=== PATIENT | female | born 2000 | race Caucasian/White ===

== ENCOUNTER 2019-06-24 15:32 | Inpatient (IN) | payer MEDICAID ==
[2019-06-24] MEDS ORDERED: Sodium Chloride 0.9% 10 ML Syringe FLUSH PRN (15:51)
[2019-06-24] MEDS ORDERED: Nalbuphine 10 MG/1 ML Vial IVPUSH PRN (15:51)
[2019-06-24] MEDS ORDERED: Oxytocin/Lactated Ringers 10 UNIT/1,000 ML BAG IV SCH ×2 (16:00)
[2019-06-24] MEDS ORDERED: Misoprostol 25 MCG (1/4 of 100 MCG) Tab VAG ONE (16:39)
[2019-06-24] MEDS ORDERED: Misoprostol 25 MCG (1/4 of 100 MCG) Tab ONE (16:42)
[2019-06-24] MEDS: Misoprostol 25 MCG (1/4 of 100 MCG) Tab VAG SCH ×2 (17:41→21:11)
[2019-06-24] MEDS ORDERED: Labetalol 100 MG/20 ML MDV IVPUSH ONE (17:57)
[2019-06-24] MEDS ORDERED: Magnesium Sulfate/Water 4 GM in Premix Bag 1 BAG IV ONE (17:58)
[2019-06-24] MEDS ORDERED: Calcium Gluconate 10% 1 GM/10 ML SDV IV PRN (17:58)
[2019-06-24] MEDS ORDERED: Magnesium Sulfate/Water 2 GM in Premix Bag 1 BAG IV ONE (17:58)
[2019-06-24] MEDS: Lactated Ringers 1,000 ML IV SCH (18:14)
[2019-06-24] MEDS: Magnesium Sulfate/Water 40 GM/1,000 ML BAG IV SCH (18:40)
--- NOTE | 2019-06-24 20:51 | PCM.SN ---
- Free Text/Narrative Note: 1800 Patient with several severe range BP's. Overall feeling well. Does have +3 reflexes bilaterally, but no clonus. Will given 20 mg IV labetalol and start magnesium. Otherwise continue induction as planned Dinorah Avilez MD
[2019-06-24] MEDS ORDERED: Acetaminophen 325 MG Tab PO ONE (21:28)
[2019-06-25] MEDS ORDERED: Amiodarone 150 MG/3 ML SDV ONE ×2
[2019-06-25] MEDS ORDERED: Lidocaine 1.5% with EPINEPHrine 1:200,000 5 ML Amp ONE
[2019-06-25] MEDS ORDERED: Sodium Bicarbonate 8.4% 50 MEQ/50 ML Syringe ONE ×2
[2019-06-25] MEDS ORDERED: Sodium Bicarbonate 8.4% 50 MEQ/50 ML SDV ONE
[2019-06-25] MEDS ORDERED: Bupivacaine 0.25% 10 ML SDV ONE ×2
[2019-06-25] MEDS ORDERED: EPINEPHrine 1:10,000 1 MG/10 ML Syringe ONE ×6
[2019-06-25] MEDS ORDERED: EPINEPHrine 1 MG/1 ML Amp ONE ×9
[2019-06-25] MEDS: Misoprostol 25 MCG (1/4 of 100 MCG) Tab VAG SCH ×5 (01:14→19:38)
[2019-06-25] MEDS ORDERED: Labetalol 100 MG/20 ML MDV IVPUSH ONE ×2 (01:34→06:44)
[2019-06-25] MEDS ORDERED: Acetaminophen/oxyCODONE 325-5 MG Tab PO ONE (06:03)
--- NOTE | 2019-06-25 06:50 | PCM.SN ---
- Free Text/Narrative Note: 0630 Overnight patient has had upper limit mild range BP's and with up to use restroom typically a few severe range BP's following. Had discussion with patient this AM and she is willing to have guardado now placed for better I/O monitoring and to limit increases in BP with activity. Had 20 mg of labetalol yesterday at 1745 and 0145. Will repeat again now as high after getting up to restroom. Had slight headache this AM as well. Have given 2 of Percocet to hopefully let patient rest as well. From induction stand point has made minimal if any change. Did have nursing staff place 4th cytotec, placed at 0610. Will transition to pitocin regardless of exam findings at 1000. FHR has been appropriate/reassuring all night. Dinorah Avilez MD
[2019-06-25] MEDS: Lactated Ringers 1,000 ML IV SCH (07:32)
[2019-06-25] MEDS ORDERED: Morphine 2 MG/ML Syringe IVPUSH PRN (09:16)
--- NOTE | 2019-06-25 09:37 | PCM.PNLD ---
Labor Progress Note - VS & Meds Vital Signs: Last Vital Signs Temp 36.7 C 06/24/19 15:51 Pulse 90 06/24/19 15:51 Resp 16 06/24/19 15:51 BP 156/98 H 06/24/19 15:51 Pulse Ox 100 06/24/19 15:51 Active Medications: Current Medications Calcium Gluconate (Calcium Gluconate) 1 gm IV ASDIRECTED PRN PRN Reason: respiratory distress Lactated Ringer's (Ringers, Lactated) 1,000 mls @ 75 mls/hr IV ASDIRECTED JOSEPHINE Last Admin: 06/25/19 07:32 Dose: 75 mls/hr Oxytocin/Lactated Ringer's (Pitocin In Lr 10 Units/1,000 Ml) 10 unit in 1,000 mls @ 12 mls/hr IV TITRATE JOSEPHINE; Protocol Oxytocin/Lactated Ringer's (Pitocin In Lr 10 Units/1,000 Ml) 10 unit in 1,000 mls @ 500 mls/hr IV .CONTINUOUS JOSEPHINE Magnesium Sulfate (Magnesium Sulfate In Water Premix) 40 gm in 1,000 mls @ 50 mls/hr IV ASDIRECTED JOSEPHINE Last Admin: 06/24/19 18:40 Dose: 50 mls/hr Misoprostol (Cytotec) 25 mcg VAG Q4HR JOSEPHINE Last Admin: 06/25/19 06:12 Dose: 25 mcg Morphine Sulfate (Morphine) 2 mg IVPUSH Q2H PRN PRN Reason: Headache Last Admin: 06/25/19 09:30 Dose: 2 mg Nalbuphine HCl (Nubain) 10 mg IVPUSH Q2H PRN PRN Reason: Pain Sodium Chloride (Saline Flush) 10 ml FLUSH ASDIRECTED PRN PRN Reason: Keep Vein Open Discontinued Medications Acetaminophen (Tylenol) 975 mg PO NOW ONE Stop: 06/24/19 21:29 Last Admin: 06/24/19 21:35 Dose: 975 mg Magnesium Sulfate 4 gm/ Premix 50 mls @ 200 mls/hr IV ONETIME ONE Stop: 06/24/19 18:12 Last Admin: 06/24/19 18:16 Dose: 200 mls/hr Magnesium Sulfate 2 gm/ Premix 50 mls @ 300 mls/hr IV ONETIME ONE Stop: 06/24/19 18:07 Last Admin: 06/24/19 18:34 Dose: 300 mls/hr Labetalol HCl (Normodyne) 20 mg IVPUSH ONETIME ONE; Protocol Stop: 06/24/19 17:58 Last Admin: 06/24/19 18:11 Dose: 4 ml Labetalol HCl (Normodyne) 20 mg IVPUSH ONETIME ONE; Protocol Stop: 06/25/19 01:35 Last Admin: 06/25/19 01:45 Dose: 20 mg Labetalol HCl (Normodyne) 20 mg IVPUSH ONETIME ONE; Protocol Stop: 06/25/19 06:45 Last Admin: 06/25/19 06:54 Dose: 20 mg Misoprostol (Cytotec) 25 mcg VAG Q4HR ONE Stop: 06/24/19 16:40 Last Admin: 06/24/19 17:01 Dose: Not Given Misoprostol (Cytotec) Confirm Administered Dose 25 mcg .ROUTE .STK-MED ONE Stop: 06/24/19 16:43 Last Admin: 06/24/19 16:45 Dose: 25 mcg Oxycodone/Acetaminophen (Percocet 325-5 Mg) 2 tab PO ONETIME ONE Stop: 06/25/19 06:04 Last Admin: 06/25/19 06:14 Dose: 2 tab - Uterine Contractions Contraction Intensity: Irritability - Monitoring Monitor Mode: External Ultrasound Heart Rate (FHR) Per Doppler: 130 Strip Review: Category I - Vaginal Exam Dilation (cm): 0 Effacement (Percent): 20 Station: Out of Pelvis Cervical Position: Posterior - Labor Progress (Free Text) Labor Progress: Slow progress. OFfered primary Patient at this time declines. Blood pressures improved since last labetolol. Good urine output Headache continues to be severe. Labs unchanged.
--- NOTE | 2019-06-25 12:10 | PCM.PREANE ---
Preanesthetic Assessment - Procedure Proposed Procedure: florencia - Anesthesia/Transfusion/Family Hx Anesthesia History: Prior Anesthesia Without Reaction Family History of Anesthesia Reaction: No Transfusion History: No Prior Transfusion(s) - Review of Systems General: No Symptoms Pulmonary: Shortness of Breath (baby) Cardiovascular: No Symptoms Gastrointestinal: Nausea, Vomiting (since 6 am today.) Neurological: No Symptoms Other: Reports: None - Physical Assessment Vital Signs: Last Vital Signs Temp 98.1 F 06/24/19 15:51 Pulse 90 06/24/19 15:51 Resp 16 06/24/19 15:51 BP 156/98 H 06/24/19 15:51 Pulse Ox 100 06/24/19 15:51 Height: 5 ft 5 in Weight: 76.975 kg ASA Class: 2 Mental Status: Alert & Oriented x3 Airway Class: Mallampati = 1 Dentition: Reports: Normal Dentition Thyro-Mental Finger Breadths: 3 Mouth Opening Finger Breadths: 3 ROM/Head Extension: Full Lungs: Clear to Auscultation, Normal Respiratory Effort Cardiovascular: Regular Rate, Regular Rhythm - Lab Values: Laboratory Last Values WBC 8.45 K/mm3 (3.98-10.04) 06/24/19 16:00 RBC 3.85 M/mm3 (3.98-5.22) L 06/24/19 16:00 Hgb 10.7 gm/L (11.2-15.7) L 06/24/19 16:00 Hct 33.4 % (34.1-44.9) L 06/24/19 16:00 MCV 86.8 fl (79.4-94.8) 06/24/19 16:00 MCH 27.8 pg (25.6-32.2) 06/24/19 16:00 MCHC 32.0 g/dl (32.2-35.5) L 06/24/19 16:00 RDW Std Deviation 44.1 fL (36.4-46.3) 06/24/19 16:00 Plt Count 195 K/mm3 (182-369) 06/24/19 16:00 MPV 11.2 fl (9.4-12.3) 06/24/19 16:00 Neut % (Auto) 74.6 % (34.0-71.1) H 06/24/19 16:00 Lymph % (Auto) 18.9 % (19.3-51.7) L 06/24/19 16:00 [place] % (Auto) 5.4 % (4.7-12.5) 06/24/19 16:00 Eos % (Auto) 0.6 (0.7-5.8) L 06/24/19 16:00 Baso % (Auto) 0.1 % (0.1-1.2) 06/24/19 16:00 Neut # (Auto) 6.30 K/mm3 (1.56-6.13) H 06/24/19 16:00 Lymph # (Auto) 1.60 K/mm3 (1.18-3.74) 06/24/19 16:00 [place] # (Auto) 0.46 K/mm3 (0.24-0.36) H 06/24/19 16:00 Eos # (Auto) 0.05 K/mm3 (0.04-0.36) 06/24/19 16:00 Baso # (Auto) 0.01 K/mm3 (0.01-0.08) 06/24/19 16:00 Sodium 137 mEq/L (136-145) 06/25/19 07:50 Potassium 3.3 mEq/L (3.5-5.1) L 06/25/19 07:50 Chloride 105 mEq/L (98-107) 06/25/19 07:50 Carbon Dioxide 23 mEq/L (21-32) 06/25/19 07:50 Anion Gap 12.3 (5-15) 06/25/19 07:50 BUN 6 mg/dL (7-18) L 06/25/19 07:50 Creatinine 0.6 mg/dL (0.55-1.02) 06/25/19 07:50 Est Cr Clr Drug Dosing 135.70 mL/min 06/25/19 07:50 Estimated GFR (MDRD) > 60 mL/min (>60) 06/25/19 07:50 BUN/Creatinine Ratio 10.0 (14-18) L 06/25/19 07:50 Glucose 88 mg/dL (74-106) 06/25/19 07:50 Uric Acid 5.8 mg/dL (2.6-6.0) 06/24/19 16:00 Calcium 8.1 mg/dL (8.5-10.1) L 06/25/19 07:50 Magnesium 5.4 mg/dl (1.8-2.4) H 06/25/19 07:50 Total Bilirubin 0.9 mg/dL (0.2-1.0) 06/25/19 07:50 AST 16 U/L (15-37) 06/25/19 07:50 ALT 14 U/L (14-59) 06/25/19 07:50 Alkaline Phosphatase 139 U/L (46-116) H 06/25/19 07:50 Lactate Dehydrogenase 215 U/L (81-234) 06/24/19 16:00 Total Protein 6.3 g/dl (6.4-8.2) L 06/25/19 07:50 Albumin 2.7 g/dl (3.4-5.0) L 06/25/19 07:50 Globulin 3.6 gm/dL 06/25/19 07:50 Albumin/Globulin Ratio 0.8 (1-2) L 06/25/19 07:50 Ur Random Creatinine 157.5 mg/dL (30.0-125.0) H 06/24/19 16:00 U Random Total Protein 45.9 mg/dL (0.0-11.8) H 06/24/19 16:00 Protein/Creatinin Ratio 291.4 mg/g (0-149) H 06/24/19 16:00 RPR Non-reactive (NONREACTIVE) 06/24/19 16:00 - Allergies Allergies/Adverse Reactions: Allergies Allergy/AdvReac Type Severity Reaction Status Date / Time Penicillins Allergy Hives Verified 06/24/19 15:51 - Blood Blood Available: No - Acknowledgements Anesthesia Type Planned: Epidural Pt an Appropriate Candidate for the Planned Anesthesia: Yes Alternatives and Risks of Anesthesia Discussed w Pt/Guardian: Yes Pt/Guardian Understands and Agrees with Anesthesia Plan: Yes PreAnesthesia Questionnaire Cardiovascular History: Reports: None Respiratory History: Reports: None Gastrointestinal History: Reports: None ENERGY CONSULTANT History: Reports: : 1 (37 weeks) Para: 0 Psychiatric History: Reports: Anxiety - SUBSTANCE USE Smoking Status *Q: Never Smoker Tobacco Use Within Last Twelve Months: No Second Hand Smoke Exposure: No Days Per Week of Alcohol Use: 0 Recreational Drug Use History: No - HOME MEDS Home Medications: Home Meds Cranberry 400 mg PO DAILY 06/24/19 [History] Fish Oil/[place]-3 Fatty Acids [Fish Oil 1,000 MG] 1 each PO DAILY 06/24/19 [ History] HEG918/Iron Fumarate/FA/DSS [ 19 Tablet] 1 each PO DAILY 06/24/19 [ History] - CURRENT (IN HOUSE) MEDS Current Meds: Current Medications Calcium Gluconate (Calcium Gluconate) 1 gm IV ASDIRECTED PRN PRN Reason: respiratory distress Lactated Ringer's (Ringers, Lactated) 1,000 mls @ 75 mls/hr IV ASDIRECTED JOSEPHINE Last Admin: 06/25/19 07:32 Dose: 75 mls/hr Oxytocin/Lactated Ringer's (Pitocin In Lr 10 Units/1,000 Ml) 10 unit in 1,000 mls @ 12 mls/hr IV TITRATE JOSEPHINE; Protocol Oxytocin/Lactated Ringer's (Pitocin In Lr 10 Units/1,000 Ml) 10 unit in 1,000 mls @ 500 mls/hr IV .CONTINUOUS JOSEPHINE Magnesium Sulfate (Magnesium Sulfate In Water Premix) 40 gm in 1,000 mls @ 50 mls/hr IV ASDIRECTED JOSEPHINE Last Admin: 06/24/19 18:40 Dose: 50 mls/hr Misoprostol (Cytotec) 25 mcg VAG Q4HR JOSEPHINE Last Admin: 06/25/19 10:01 Dose: 25 mcg Morphine Sulfate (Morphine) 2 mg IVPUSH Q2H PRN PRN Reason: Headache Last Admin: 06/25/19 09:30 Dose: 2 mg Nalbuphine HCl (Nubain) 10 mg IVPUSH Q2H PRN PRN Reason: Pain Sodium Chloride (Saline Flush) 10 ml FLUSH ASDIRECTED PRN PRN Reason: Keep Vein Open Discontinued Medications Acetaminophen (Tylenol) 975 mg PO NOW ONE Stop: 06/24/19 21:29 Last Admin: 06/24/19 21:35 Dose: 975 mg Magnesium Sulfate 4 gm/ Premix 50 mls @ 200 mls/hr IV ONETIME ONE Stop: 06/24/19 18:12 Last Admin: 06/24/19 18:16 Dose: 200 mls/hr Magnesium Sulfate 2 gm/ Premix 50 mls @ 300 mls/hr IV ONETIME ONE Stop: 06/24/19 18:07 Last Admin: 06/24/19 18:34 Dose: 300 mls/hr Labetalol HCl (Normodyne) 20 mg IVPUSH ONETIME ONE; Protocol Stop: 06/24/19 17:58 Last Admin: 06/24/19 18:11 Dose: 4 ml Labetalol HCl (Normodyne) 20 mg IVPUSH ONETIME ONE; Protocol Stop: 06/25/19 01:35 Last Admin: 06/25/19 01:45 Dose: 20 mg Labetalol HCl (Normodyne) 20 mg IVPUSH ONETIME ONE; Protocol Stop: 06/25/19 06:45 Last Admin: 06/25/19 06:54 Dose: 20 mg Misoprostol (Cytotec) 25 mcg VAG Q4HR ONE Stop: 06/24/19 16:40 Last Admin: 06/24/19 17:01 Dose: Not Given Misoprostol (Cytotec) Confirm Administered Dose 25 mcg .ROUTE .STK-MED ONE Stop: 06/24/19 16:43 Last Admin: 06/24/19 16:45 Dose: 25 mcg Oxycodone/Acetaminophen (Percocet 325-5 Mg) 2 tab PO ONETIME ONE Stop: 06/25/19 06:04 Last Admin: 06/25/19 06:14 Dose: 2 tab
[2019-06-25] MEDS ORDERED: diphenhydrAMINE 50 MG/ML SDV IVPUSH PRN (12:14)
[2019-06-25] MEDS ORDERED: ePHEDrine 50 MG/ML SDV IVPUSH PRN (12:14)
[2019-06-25] MEDS ORDERED: Ondansetron 4 MG/2 ML SDV IVPUSH ONE (12:34)
[2019-06-25] MEDS: fentaNYL 100 MCG/2 ML SDV EPIDUR PRN ×2 (15:17→20:12)
[2019-06-25] MEDS: Bupivacaine/fentaNYL/NS 100 ML Bag EPIDUR PRN ×2 (15:17→20:32)
--- NOTE | 2019-06-25 19:12 | PCM.PNLD ---
Labor Progress Note - VS & Meds Vital Signs: Last Vital Signs Temp 36.7 C 06/24/19 15:51 Pulse 90 06/24/19 15:51 Resp 16 06/24/19 15:51 BP 156/98 H 06/24/19 15:51 Pulse Ox 100 06/24/19 15:51 Active Medications: C - Uterine Contractions Uterine Monitoring Mode: External [place] Contraction Intensity: Moderate to Strong Uterine Resting Tone: Soft - Monitoring Monitor Mode: External Ultrasound Heart Rate (FHR) Baseline: 115 Heart Rate (FHR) Variability: Moderate (6-25 bmp) Accelerations: Present, 15x15 Strip Review: Category I - Vaginal Exam Dilation (cm): 3 Effacement (Percent): 80 Station: -2 Cervical Position: Midposition - Labor Progress (Free Text) Labor Progress: Patient received a 5th dose of cytotec at 1000. SROM around 1330. Started on pitocin around 1400. Epidural shortly thereafter. Pitocin Currently at 12. Just checked now and has made good change to 3 / 80 / -2. Has not needed additional anti-hypertensives throughout the day. Continues on magnesium. Continue present management Exam - Exam Exam: See Below - Vital Signs Vital Signs: Last Vital Signs Temp 36.7 C 06/24/19 15:51 Pulse 90 06/24/19 15:51 Resp 16 06/24/19 15:51 BP 156/98 H 06/24/19 15:51 Pulse Ox 100 06/24/19 15:51 Weight: 76.975 kg - Exam General: Alert, Oriented, Cooperative GI/Abdominal Exam: Soft, Non-Tender (Female) Exam: Normal External Exam Extremities: Normal Inspection. No: Pedal Edema DTR: 3+: Bicep (L), Bicep (R), Patella (L), Patella (R)
[2019-06-25] MEDS ORDERED: Ondansetron 4 MG/2 ML SDV IVPUSH PRN (20:19)
--- NOTE | 2019-06-25 23:24 | PCM.DEL ---
L & D Note - General Info Date of Service: 06/25/19 - Delivery Note Labor: Induced by Oxytocin Cervical Ripening Method: Misoprostil Delivery Outcome: Livebirth Delivery Method: Spontaneous Vaginal Delivery-Single Delivery Mode: Spontaneous Presentation: Right Occiput Anterior (SINTIA) Nuchal Cord: None Anesthesia Type: Epidural Amniotic Fluid Description: Clear Episiotomy Type: None Laceration: 2nd Degree, Perineal Suture type: Vicryl Suture size: 2-0 Placenta: Intact, Spontaneous Cord: 3 Vessels Estimated Blood Loss: 200 Resuscitation Needed: Yes [place]: Bulb Syringe, Stimulated, Warmed, [place] Used, Warmer Used Delivery Comments (Free Text/Narrative):: Patient found to be complete and began pushing. With maternal pushing effort head delivered from an SINTIA presentation. No nuchal cord present. With gentle downward traction the shoulders and body delivered. Infant placed on maternal abdomen. Cord clamped and cut. Cord blood obtained. Placenta allowed time to separate and expelled intact. Inspection of the perineum showed a second-degree laceration which was repaired with a 2-0 Vicryl in the typical running fashion. - General Info Date of Service: 06/25/19 - Patient Data Vitals - Most Recent: Last Vital Signs Temp 36.7 C 06/24/19 15:51 Pulse 90 06/24/19 15:51 Resp 16 06/24/19 15:51 BP 156/98 H 06/24/19 15:51 Pulse Ox 100 06/24/19 15:51 Weight - Most Recent: 76.975 kg I&O - Last 24 Hours: Intake & Output 06/25/19 06/25/19 06/26/19 14:59 22:59 06:59 Intake Total 1000 1148 Output Total 1800 1400 Balance -800 -252 Lab Results Last 24 Hours: Laboratory Results - last 24 hr 06/24/19 06/25/19 06/25/19 Range/Units 16:00 07:50 16:47 Sodium 137 (136-145) mEq/L Potassium 3.3 L (3.5-5.1) mEq/L Chloride 105 (98-107) mEq/L Carbon Dioxide 23 (21-32) mEq/L Anion Gap 12.3 (5-15) BUN 6 L (7-18) mg/dL Creatinine 0.6 (0.55-1.02) mg/dL Est Cr Clr Drug Dosing 135.70 mL/min Estimated GFR (MDRD) > 60 (>60) mL/min BUN/Creatinine Ratio 10.0 L (14-18) Glucose 88 (74-106) mg/dL Calcium 8.1 L (8.5-10.1) mg/dL Magnesium 5.4 H 5.9 H (1.8-2.4) mg/dl Total Bilirubin 0.9 (0.2-1.0) mg/dL AST 16 21 (15-37) U/L ALT 14 14 (14-59) U/L Alkaline Phosphatase 139 H (46-116) U/L Creatine Kinase 88 (26-192) U/L Total Protein 6.3 L (6.4-8.2) g/dl Albumin 2.7 L (3.4-5.0) g/dl Globulin 3.6 gm/dL Albumin/Globulin Ratio 0.8 L (1-2) RPR Non-reactive (NONREACTIVE) 06/25/19 Range/Units 16:47 Sodium (136-145) mEq/L Potassium (3.5-5.1) mEq/L Chloride (98-107) mEq/L Carbon Dioxide (21-32) mEq/L Anion Gap (5-15) BUN (7-18) mg/dL Creatinine 0.6 (0.55-1.02) mg/dL Est Cr Clr Drug Dosing 135.70 mL/min Estimated GFR (MDRD) > 60 (>60) mL/min BUN/Creatinine Ratio (14-18) Glucose (74-106) mg/dL Calcium (8.5-10.1) mg/dL Magnesium (1.8-2.4) mg/dl Total Bilirubin (0.2-1.0) mg/dL AST (15-37) U/L ALT (14-59) U/L Alkaline Phosphatase (46-116) U/L Creatine Kinase (26-192) U/L Total Protein (6.4-8.2) g/dl Albumin (3.4-5.0) g/dl Globulin gm/dL Albumin/Globulin Ratio (1-2) RPR (NONREACTIVE) Med Orders - Current: Current Medications Calcium Gluconate (Calcium Gluconate) 1 gm IV ASDIRECTED PRN PRN Reason: respiratory distress Diphenhydramine HCl (Benadryl) 25 mg IVPUSH Q6H PRN PRN Reason: pruritis Ephedrine Sulfate (Ephedrine Sulfate) 5 mg IVPUSH ASDIRECTED PRN PRN Reason: Hypotension Fentanyl (Sublimaze) 100 mcg EPIDUR Q3H PRN PRN Reason: Pain Last Admin: 06/25/19 20:12 Dose: 100 mcg Fentanyl/Bupivacaine HCl (Fentanyl/Bupivacaine/Ns 2 Mcg-0.125% 100 Ml) 100 ml EPIDUR ASDIRECTED PRN PRN Reason: Pain Last Admin: 06/25/19 20:32 Dose: 100 ml Lactated Ringer's (Ringers, Lactated) 1,000 mls @ 75 mls/hr IV ASDIRECTED JOSEPHINE Last Admin: 06/25/19 07:32 Dose: 75 mls/hr Oxytocin/Lactated Ringer's (Pitocin In Lr 10 Units/1,000 Ml) 10 unit in 1,000 mls @ 12 mls/hr IV TITRATE JOSEPHINE; Protocol Last Titration: 06/25/19 18:48 Dose: 12 munits/min, 72 mls/hr Oxytocin/Lactated Ringer's (Pitocin In Lr 10 Units/1,000 Ml) 10 unit in 1,000 mls @ 500 mls/hr IV .CONTINUOUS JOSEPHINE Magnesium Sulfate (Magnesium Sulfate In Water Premix) 40 gm in 1,000 mls @ 50 mls/hr IV ASDIRECTED JOSEPHINE Last Admin: 06/24/19 18:40 Dose: 50 mls/hr Oxytocin 20 unit/ Lactated (Ringer's) 1,002 mls @ 36.07 mls/hr IV TITRATE JOSEPHINE; Protocol Morphine Sulfate (Morphine) 2 mg IVPUSH Q2H PRN PRN Reason: Headache Last Admin: 06/25/19 09:30 Dose: 2 mg Nalbuphine HCl (Nubain) 10 mg IVPUSH Q2H PRN PRN Reason: Pain Ondansetron HCl (Zofran) 4 mg IVPUSH Q4HR PRN PRN Reason: Nausea/Vomiting Last Admin: 06/25/19 20:33 Dose: 4 mg Sodium Chloride (Saline Flush) 10 ml FLUSH ASDIRECTED PRN PRN Reason: Keep Vein Open Discontinued Medications Acetaminophen (Tylenol) 975 mg PO NOW ONE Stop: 06/24/19 21:29 Last Admin: 06/24/19 21:35 Dose: 975 mg Magnesium Sulfate 4 gm/ Premix 50 mls @ 200 mls/hr IV ONETIME ONE Stop: 06/24/19 18:12 Last Admin: 06/24/19 18:16 Dose: 200 mls/hr Magnesium Sulfate 2 gm/ Premix 50 mls @ 300 mls/hr IV ONETIME ONE Stop: 06/24/19 18:07 Last Admin: 06/24/19 18:34 Dose: 300 mls/hr Labetalol HCl (Normodyne) 20 mg IVPUSH ONETIME ONE; Protocol Stop: 06/24/19 17:58 Last Admin: 06/24/19 18:11 Dose: 4 ml Labetalol HCl (Normodyne) 20 mg IVPUSH ONETIME ONE; Protocol Stop: 06/25/19 01:35 Last Admin: 06/25/19 01:45 Dose: 20 mg Labetalol HCl (Normodyne) 20 mg IVPUSH ONETIME ONE; Protocol Stop: 06/25/19 06:45 Last Admin: 06/25/19 06:54 Dose: 20 mg Misoprostol (Cytotec) 25 mcg VAG Q4HR ONE Stop: 06/24/19 16:40 Last Admin: 06/24/19 17:01 Dose: Not Given Misoprostol (Cytotec) Confirm Administered Dose 25 mcg .ROUTE .STK-MED ONE Stop: 06/24/19 16:43 Last Admin: 06/24/19 16:45 Dose: 25 mcg Misoprostol (Cytotec) 25 mcg VAG Q4HR JOSEPHINE Last Admin: 06/25/19 19:38 Dose: Not Given Ondansetron HCl (Zofran) 4 mg IVPUSH ONETIME ONE Stop: 06/25/19 12:35 Last Admin: 06/25/19 14:06 Dose: 4 mg Oxycodone/Acetaminophen (Percocet 325-5 Mg) 2 tab PO ONETIME ONE Stop: 06/25/19 06:04 Last Admin: 06/25/19 06:14 Dose: 2 tab - Problem List & Annotations (1) 37 weeks gestation of SNOMED Code(s): 21696735 Code(s): Z3A.37 - 37 WEEKS GESTATION OF Status: Acute Current Visit: Yes (2) Severe pre-eclampsia SNOMED Code(s): 29301607 Code(s): O14.10 - SEVERE PRE-ECLAMPSIA, UNSPECIFIED TRIMESTER Status: Acute Current Visit: Yes Qualifiers: Trimester: third trimester Qualified Code(s): O14.13 - Severe pre-eclampsia , third trimester (3) Vaginal delivery SNOMED Code(s): 992187180 Code(s): O80 - ENCOUNTER FOR FULL-TERM UNCOMPLICATED DELIVERY Status: Acute Current Visit: Yes - Problem List Review Problem List Initiated/Reviewed/Updated: Yes - My Orders Last 24 Hours: My Active Orders 06/25/19 19:00 Oxytocin [Pitocin] 20 unit Lactated Ringers [Ringers, Lactated] 1,000 ml IV TITRATE 06/25/19 20:19 Ondansetron [Zofran] 4 mg IVPUSH Q4HR PRN - Assessment Assessment:: 18-year-old G1 now P1 001 day #0 from at 37-4/7 weeks gestation - Plan Plan:: / Severe preeclampsia * Routine cares * Continue magnesium for 24 hours postdelivery * Strict I's and O's and blood pressure checks * Encourage breast-feeding * Discharge home in 2 days
[2019-06-26] MEDS ORDERED: Witch Hazel Medicated Pads 40/Jar TOP PRN (00:15)
[2019-06-26] MEDS ORDERED: Lanolin 100% Cream 7 GM Tube TOP PRN (00:15)
[2019-06-26] MEDS ORDERED: Benzocaine/Menthol 20%-0.5% Spray 56 GM Canister TOP PRN (00:15)
[2019-06-26] MEDS ORDERED: Acetaminophen 325 MG Tab PO PRN (00:15)
[2019-06-26] MEDS: Ibuprofen 600 MG Tab PO PRN ×3 (01:00→17:36)
[2019-06-26] MEDS: Docusate Sodium 100 MG Cap PO PRN (01:02)
--- NOTE | 2019-06-26 06:49 | PCM48HPAN ---
Post Anesthesia Note - EVALUATION WITHIN 48HRS OF ANESTHETIC Vital Signs in Normal Range: Yes Patient Participated in Evaluation: Yes Respiratory Function Stable: Yes Airway Patent: Yes Cardiovascular Function Stable: Yes Hydration Status Stable: Yes Pain Control Satisfactory: Yes Nausea and Vomiting Control Satisfactory: Yes Mental Status Recovered: Yes Vital Signs: Last Vital Signs Temp 36.7 C 06/24/19 15:51 Pulse 61 06/26/19 05:00 Resp 16 06/24/19 15:51 BP 115/69 06/26/19 05:00 Pulse Ox 99 06/25/19 15:02
--- NOTE | 2019-06-26 10:09 | PCM.PNPP ---
- General Info Date of Service: 06/26/19 Functional Status: Reports: Pain Controlled, Tolerating Diet - Review of Systems General: Reports: No Symptoms HEENT: Denies: Headaches Cardiovascular: Reports: No Symptoms Gastrointestinal: Reports: No Symptoms Genitourinary: Reports: No Symptoms Musculoskeletal: Reports: No Symptoms Neurological: Reports: No Symptoms - Patient Data Vital Signs - Most Recent: Last Vital Signs Temp 36.7 C 06/24/19 15:51 Pulse 68 06/26/19 07:01 Resp 16 06/24/19 15:51 BP 129/75 06/26/19 07:01 Pulse Ox 99 06/25/19 15:02 Weight - Most Recent: 76.975 kg I&O - Last 24 Hours: Intake & Output 06/25/19 06/26/19 06/26/19 22:59 06:59 14:59 Intake Total 1272 1300 Output Total 1400 1250 Balance -128 50 Lab Results - Last 24 Hours: Laboratory Results - last 24 hr 06/25/19 06/25/19 Range/Units 16:47 16:47 Creatinine 0.6 (0.55-1.02) mg/dL Est Cr Clr Drug Dosing 135.70 mL/min Estimated GFR (MDRD) > 60 (>60) mL/min Magnesium 5.9 H (1.8-2.4) mg/dl AST 21 (15-37) U/L ALT 14 (14-59) U/L Creatine Kinase 88 (26-192) U/L Med Orders - Current: Current Medications Acetaminophen (Tylenol) 650 mg PO Q4H PRN PRN Reason: mild pain or fever Benzocaine/Menthol (Dermoplast Pain Relief [place]) 0 gm TOP ASDIRECTED PRN PRN Reason: Perineal Comfort Measure Last Admin: 06/26/19 01:03 Dose: 1 canister Calcium Gluconate (Calcium Gluconate) 1 gm IV ASDIRECTED PRN PRN Reason: respiratory distress Docusate Sodium (Colace) 100 mg PO BID PRN PRN Reason: Constipation Last Admin: 06/26/19 01:02 Dose: 100 mg Emollient Ointment (Lansinoh Hpa) 0 gm TOP ASDIRECTED PRN PRN Reason: Sore Nipples Lactated Ringer's (Ringers, Lactated) 1,000 mls @ 75 mls/hr IV ASDIRECTED JOSEPHINE Last Admin: 06/25/19 07:32 Dose: 75 mls/hr Magnesium Sulfate (Magnesium Sulfate In Water Premix) 40 gm in 1,000 mls @ 50 mls/hr IV ASDIRECTED JOSEPHINE Last Admin: 06/24/19 18:40 Dose: 50 mls/hr Ibuprofen (Motrin) 600 mg PO Q6H PRN PRN Reason: Mild pain or fever Last Admin: 06/26/19 01:00 Dose: 600 mg Witch Kanwal (Tucks) 1 pad TOP ASDIRECTED PRN PRN Reason: Perineal Comfort Measure Last Admin: 06/26/19 01:03 Dose: 1 tub Discontinued Medications Acetaminophen (Tylenol) 975 mg PO NOW ONE Stop: 06/24/19 21:29 Last Admin: 06/24/19 21:35 Dose: 975 mg Diphenhydramine HCl (Benadryl) 25 mg IVPUSH Q6H PRN PRN Reason: pruritis Ephedrine Sulfate (Ephedrine Sulfate) 5 mg IVPUSH ASDIRECTED PRN PRN Reason: Hypotension Fentanyl (Sublimaze) 100 mcg EPIDUR Q3H PRN PRN Reason: Pain Last Admin: 06/25/19 20:12 Dose: 100 mcg Fentanyl/Bupivacaine HCl (Fentanyl/Bupivacaine/Ns 2 Mcg-0.125% 100 Ml) 100 ml EPIDUR ASDIRECTED PRN PRN Reason: Pain Last Admin: 06/25/19 20:32 Dose: 100 ml Oxytocin/Lactated Ringer's (Pitocin In Lr 10 Units/1,000 Ml) 10 unit in 1,000 mls @ 12 mls/hr IV TITRATE JOSEPHINE; Protocol Last Titration: 06/25/19 18:48 Dose: 12 munits/min, 72 mls/hr Oxytocin/Lactated Ringer's (Pitocin In Lr 10 Units/1,000 Ml) 10 unit in 1,000 mls @ 500 mls/hr IV .CONTINUOUS JOSEPHINE Magnesium Sulfate 4 gm/ Premix 50 mls @ 200 mls/hr IV ONETIME ONE Stop: 06/24/19 18:12 Last Admin: 06/24/19 18:16 Dose: 200 mls/hr Magnesium Sulfate 2 gm/ Premix 50 mls @ 300 mls/hr IV ONETIME ONE Stop: 06/24/19 18:07 Last Admin: 06/24/19 18:34 Dose: 300 mls/hr Oxytocin 20 unit/ Lactated (Ringer's) 1,002 mls @ 36.07 mls/hr IV TITRATE JOSEPHINE; Protocol Labetalol HCl (Normodyne) 20 mg IVPUSH ONETIME ONE; Protocol Stop: 06/24/19 17:58 Last Admin: 06/24/19 18:11 Dose: 4 ml Labetalol HCl (Normodyne) 20 mg IVPUSH ONETIME ONE; Protocol Stop: 06/25/19 01:35 Last Admin: 06/25/19 01:45 Dose: 20 mg Labetalol HCl (Normodyne) 20 mg IVPUSH ONETIME ONE; Protocol Stop: 06/25/19 06:45 Last Admin: 06/25/19 06:54 Dose: 20 mg Misoprostol (Cytotec) 25 mcg VAG Q4HR ONE Stop: 06/24/19 16:40 Last Admin: 06/24/19 17:01 Dose: Not Given Misoprostol (Cytotec) Confirm Administered Dose 25 mcg .ROUTE .STK-MED ONE Stop: 06/24/19 16:43 Last Admin: 06/24/19 16:45 Dose: 25 mcg Misoprostol (Cytotec) 25 mcg VAG Q4HR JOSEPHINE Last Admin: 06/25/19 19:38 Dose: Not Given Morphine Sulfate (Morphine) 2 mg IVPUSH Q2H PRN PRN Reason: Headache Last Admin: 06/25/19 09:30 Dose: 2 mg Nalbuphine HCl (Nubain) 10 mg IVPUSH Q2H PRN PRN Reason: Pain Ondansetron HCl (Zofran) 4 mg IVPUSH ONETIME ONE Stop: 06/25/19 12:35 Last Admin: 06/25/19 14:06 Dose: 4 mg Ondansetron HCl (Zofran) 4 mg IVPUSH Q4HR PRN PRN Reason: Nausea/Vomiting Last Admin: 06/25/19 20:33 Dose: 4 mg Oxycodone/Acetaminophen (Percocet 325-5 Mg) 2 tab PO ONETIME ONE Stop: 06/25/19 06:04 Last Admin: 06/25/19 06:14 Dose: 2 tab Sodium Chloride (Saline Flush) 10 ml FLUSH ASDIRECTED PRN PRN Reason: Keep Vein Open - Infant Interaction Disposition, : [place] to Nursery Support Person: Significant Other - Recovery Exam Fundal Tone: Firm Fundal Level: 1 Fingerbreadths Below Umbilicus Fundal Placement: Midline Lochia Amount: Small Lochia Color: Rubra/Red Perineum Description: Other (see below) Other Perinuem Description: 2nd degree lac with repair Bladder Status: Indwelling Catheter in Place - Exam General: Alert, Oriented, Cooperative Lungs: Clear to Auscultation, Normal Respiratory Effort Cardiovascular: Regular Rate, Regular Rhythm GI/Abdominal Exam: Soft, Non-Tender Extremities: Normal Inspection, Pedal Edema Skin: Warm, Dry, Intact Neurological: Reflexes Equal Bilateral (+2 patellar ) - Problem List & Annotations (1) 37 weeks gestation of SNOMED Code(s): 85284284 Code(s): Z3A.37 - 37 WEEKS GESTATION OF Status: Acute Current Visit: Yes (2) Severe pre-eclampsia SNOMED Code(s): 40826871 Code(s): O14.10 - SEVERE PRE-ECLAMPSIA, UNSPECIFIED TRIMESTER Status: Acute Current Visit: Yes Qualifiers: Trimester: third trimester Qualified Code(s): O14.13 - Severe pre-eclampsia , third trimester (3) Vaginal delivery SNOMED Code(s): 155638505 Code(s): O80 - ENCOUNTER FOR FULL-TERM UNCOMPLICATED DELIVERY Status: Acute Current Visit: Yes - Problem List Review Problem List Initiated/Reviewed/Updated: Yes - My Orders Last 24 Hours: My Active Orders 06/26/19 00:15 Vital Signs [RC] Q1HR Acetaminophen [Tylenol] 650 mg PO Q4H PRN Benzocaine/Menthol [Dermoplast Pain Relief [place]] See Dose Instructions TOP ASDIRECTED PRN Docusate Sodium [Colace] 100 mg PO BID PRN Ibuprofen [Motrin] 600 mg PO Q6H PRN Lanolin [Lansinoh HPA] See Dose Instructions TOP ASDIRECTED PRN Witch Kanwal [Tucks] 1 pad TOP ASDIRECTED PRN Assess Lochia [WOMSER] Per Unit Routine Assess Uterine Involution [WOMSER] Per Unit Routine Breast Pump [WOMSER] Per Unit Routine Heat Therapy [OM.PC] PRN Ice Therapy [OM.PC] Per Unit Routine Perineal Care [OM.PC] Per Unit Routine Peripheral IV Discontinue [OM.PC] Routine Sitz Bath [OM.PC] Per Unit Routine 06/27/19 00:15 Heat Therapy [OM.PC] PRN - Assessment Assessment:: 18-year-old G1 now P1 001 day #1 from at 37-4/7 weeks gestation - Plan Plan:: / Severe preeclampsia * Routine cares * Continue magnesium for 24 hours postdelivery * UOP has been at least 100 cc/hr and BP's are normal to mild range. No additional anti-hypertensives needed since delivery * Encourage breast-feeding * Discharge home tomorrow
[2019-06-26] MEDS: Lactated Ringers 1,000 ML IV SCH (10:47)
[2019-06-26] MEDS: Magnesium Sulfate/Water 40 GM/1,000 ML BAG IV SCH (10:47)
--- NOTE | 2019-06-27 06:40 | PCM.PNPP ---
- General Info Date of Service: 06/27/19 Functional Status: Reports: Pain Controlled, Tolerating Diet, Ambulating, Urinating - Review of Systems General: Reports: No Symptoms Pulmonary: Reports: No Symptoms Cardiovascular: Reports: No Symptoms Gastrointestinal: Reports: No Symptoms Genitourinary: Reports: No Symptoms Musculoskeletal: Reports: Other (some numbness on top of thighs ) - Patient Data Vital Signs - Most Recent: Last Vital Signs Temp 36.9 C 06/26/19 12:45 Pulse 75 06/26/19 23:01 Resp 15 06/26/19 11:00 BP 121/72 06/27/19 02:00 Pulse Ox 97 06/26/19 23:01 Weight - Most Recent: 76.975 kg I&O - Last 24 Hours: Intake & Output 06/26/19 06/26/19 06/27/19 14:59 22:59 06:59 Intake Total 1200 1910 125 Output Total 800 2000 750 Balance 400 -12 -702 Med Orders - Current: Current Medications Acetaminophen (Tylenol) 650 mg PO Q4H PRN PRN Reason: mild pain or fever Last Admin: 06/26/19 13:39 Dose: 650 mg Benzocaine/Menthol (Dermoplast Pain Relief [place]) 0 gm TOP ASDIRECTED PRN PRN Reason: Perineal Comfort Measure Last Admin: 06/26/19 01:03 Dose: 1 canister Calcium Gluconate (Calcium Gluconate) 1 gm IV ASDIRECTED PRN PRN Reason: respiratory distress Docusate Sodium (Colace) 100 mg PO BID PRN PRN Reason: Constipation Last Admin: 06/26/19 01:02 Dose: 100 mg Emollient Ointment (Lansinoh Hpa) 0 gm TOP ASDIRECTED PRN PRN Reason: Sore Nipples Lactated Ringer's (Ringers, Lactated) 1,000 mls @ 75 mls/hr IV ASDIRECTED JOSEPHINE Last Admin: 06/26/19 10:47 Dose: 75 mls/hr Magnesium Sulfate (Magnesium Sulfate In Water Premix) 40 gm in 1,000 mls @ 50 mls/hr IV ASDIRECTED JOSEPHINE Last Admin: 06/26/19 10:47 Dose: 50 mls/hr Ibuprofen (Motrin) 600 mg PO Q6H PRN PRN Reason: Mild pain or fever Last Admin: 06/26/19 17:36 Dose: 600 mg Witch Kanwal (Tucks) 1 pad TOP ASDIRECTED PRN PRN Reason: Perineal Comfort Measure Last Admin: 06/26/19 01:03 Dose: 1 tub Discontinued Medications Acetaminophen (Tylenol) 975 mg PO NOW ONE Stop: 06/24/19 21:29 Last Admin: 06/24/19 21:35 Dose: 975 mg Bupivacaine HCl (Sensorcaine-Mpf 0.25%) 10 ml .ROUTE .STK-MED ONE Stop: 06/25/19 00:01 Bupivacaine HCl (Sensorcaine-Mpf 0.25%) 10 ml .ROUTE .STK-MED ONE Stop: 06/25/19 00:01 Diphenhydramine HCl (Benadryl) 25 mg IVPUSH Q6H PRN PRN Reason: pruritis Ephedrine Sulfate (Ephedrine Sulfate) 5 mg IVPUSH ASDIRECTED PRN PRN Reason: Hypotension Fentanyl (Sublimaze) 100 mcg EPIDUR Q3H PRN PRN Reason: Pain Last Admin: 06/25/19 20:12 Dose: 100 mcg Fentanyl/Bupivacaine HCl (Fentanyl/Bupivacaine/Ns 2 Mcg-0.125% 100 Ml) 100 ml EPIDUR ASDIRECTED PRN PRN Reason: Pain Last Admin: 06/25/19 20:32 Dose: 100 ml Oxytocin/Lactated Ringer's (Pitocin In Lr 10 Units/1,000 Ml) 10 unit in 1,000 mls @ 12 mls/hr IV TITRATE JOSEPHINE; Protocol Last Titration: 06/25/19 18:48 Dose: 12 munits/min, 72 mls/hr Oxytocin/Lactated Ringer's (Pitocin In Lr 10 Units/1,000 Ml) 10 unit in 1,000 mls @ 500 mls/hr IV .CONTINUOUS JOSEPHINE Magnesium Sulfate 4 gm/ Premix 50 mls @ 200 mls/hr IV ONETIME ONE Stop: 06/24/19 18:12 Last Admin: 06/24/19 18:16 Dose: 200 mls/hr Magnesium Sulfate 2 gm/ Premix 50 mls @ 300 mls/hr IV ONETIME ONE Stop: 06/24/19 18:07 Last Admin: 06/24/19 18:34 Dose: 300 mls/hr Oxytocin 20 unit/ Lactated (Ringer's) 1,002 mls @ 36.07 mls/hr IV TITRATE JOSEPHINE; Protocol Labetalol HCl (Normodyne) 20 mg IVPUSH ONETIME ONE; Protocol Stop: 06/24/19 17:58 Last Admin: 06/24/19 18:11 Dose: 4 ml Labetalol HCl (Normodyne) 20 mg IVPUSH ONETIME ONE; Protocol Stop: 06/25/19 01:35 Last Admin: 06/25/19 01:45 Dose: 20 mg Labetalol HCl (Normodyne) 20 mg IVPUSH ONETIME ONE; Protocol Stop: 06/25/19 06:45 Last Admin: 06/25/19 06:54 Dose: 20 mg Lidocaine/Epinephrine (Xylocaine-Mpf 1.5% W/Epinephrine 1:200,000) 5 ml .ROUTE .STK-MED ONE Stop: 06/25/19 00:01 Misoprostol (Cytotec) 25 mcg VAG Q4HR ONE Stop: 06/24/19 16:40 Last Admin: 06/24/19 17:01 Dose: Not Given Misoprostol (Cytotec) Confirm Administered Dose 25 mcg .ROUTE .STK-MED ONE Stop: 06/24/19 16:43 Last Admin: 06/24/19 16:45 Dose: 25 mcg Misoprostol (Cytotec) 25 mcg VAG Q4HR JOSEPHINE Last Admin: 06/25/19 19:38 Dose: Not Given Morphine Sulfate (Morphine) 2 mg IVPUSH Q2H PRN PRN Reason: Headache Last Admin: 06/25/19 09:30 Dose: 2 mg Nalbuphine HCl (Nubain) 10 mg IVPUSH Q2H PRN PRN Reason: Pain Ondansetron HCl (Zofran) 4 mg IVPUSH ONETIME ONE Stop: 06/25/19 12:35 Last Admin: 06/25/19 14:06 Dose: 4 mg Ondansetron HCl (Zofran) 4 mg IVPUSH Q4HR PRN PRN Reason: Nausea/Vomiting Last Admin: 06/25/19 20:33 Dose: 4 mg Oxycodone/Acetaminophen (Percocet 325-5 Mg) 2 tab PO ONETIME ONE Stop: 06/25/19 06:04 Last Admin: 06/25/19 06:14 Dose: 2 tab Sodium Chloride (Saline Flush) 10 ml FLUSH ASDIRECTED PRN PRN Reason: Keep Vein Open - Interaction Infant Disposition, : [place] to Nursery Infant Interaction: Holding Feeding: Attempted ; Nursed Fair/Poor Support Person: Significant Other - Recovery Exam Fundal Tone: Firm Fundal Level: 1 Fingerbreadths Below Umbilicus Fundal Placement: Midline Lochia Amount: Scant Lochia Color: Rubra/Red Perineum Description: Other (see below) Other Perinuem Description: 2nd degree with repair Episiotomy/Laceration: Approximated Bladder Status: Voiding Urinary Elimination: Voided - Exam General: Alert, Oriented, Cooperative Lungs: Clear to Auscultation, Normal Respiratory Effort Cardiovascular: Regular Rate, Regular Rhythm GI/Abdominal Exam: Soft, Non-Tender Extremities: Normal Inspection Skin: Warm, Dry, Intact Neurological: Reflexes Equal Bilateral (+2) - Problem List & Annotations (1) 37 weeks gestation of SNOMED Code(s): 63176268 Code(s): Z3A.37 - 37 WEEKS GESTATION OF Status: Acute Current Visit: Yes (2) Severe pre-eclampsia SNOMED Code(s): 61065416 Code(s): O14.10 - SEVERE PRE-ECLAMPSIA, UNSPECIFIED TRIMESTER Status: Acute Current Visit: Yes Qualifiers: Trimester: third trimester Qualified Code(s): O14.13 - Severe pre-eclampsia , third trimester (3) Vaginal delivery SNOMED Code(s): 569966129 Code(s): O80 - ENCOUNTER FOR FULL-TERM UNCOMPLICATED DELIVERY Status: Acute Current Visit: Yes - Problem List Review Problem List Initiated/Reviewed/Updated: Yes - My Orders Last 24 Hours: My Active Orders 06/27/19 00:15 Heat Therapy [OM.PC] PRN - Assessment Assessment:: 18-year-old G1 now P1 001 day #2 from at 37-4/7 weeks gestation - Plan Plan:: / Severe preeclampsia * Magnesium off at 2300 last night. * BP's overnight normal to mild range. No additional anti-hypertensives required * UOP has been appropriate overnight * Patient somewhat interested in discharge home. Reviewed if does get to go home discharge would be late in the PM. Will reassess as day goes on
[2019-06-27] MEDS: Docusate Sodium 100 MG Cap PO PRN (08:12)
[2019-06-27] MEDS: Ibuprofen 600 MG Tab PO PRN (08:12)
[2019-06-27] MEDS ORDERED: Measles, Mumps & Rubella Vaccine 0.5 ML SDV SUBCUT ONE (08:44)
[2019-06-27] MEDS ORDERED: Magnesium Sulfate/Water 50 ML ONE ×2 (09:33→09:34)
[2019-06-27] MEDS ORDERED: Labetalol 100 MG/20 ML MDV ONE (09:38)
[2019-06-27] MEDS ORDERED: Sodium Bicarbonate 8.4% 50 MEQ/50 ML Syringe ONE ×2 (09:40)
[2019-06-27] MEDS ORDERED: Sodium Bicarbonate 8.4% 50 MEQ/50 ML SDV ONE ×2 (09:40)
[2019-06-27] MEDS ORDERED: Amiodarone 150 MG/3 ML SDV ONE (09:40)
[2019-06-27] MEDS ORDERED: EPINEPHrine 1 MG/1 ML Amp ONE ×3 (09:40)
[2019-06-27] MEDS ORDERED: EPINEPHrine 1:10,000 1 MG/10 ML Syringe ONE ×6 (09:40)
[2019-06-27] MEDS ORDERED: hydrALAZINE 20 MG/ML SDV ONE (09:42)
[2019-06-27] MEDS ORDERED: Magnesium Sulfate/Water 40 GM/1,000 ML BAG ONE (09:58)
[2019-06-27] MEDS ORDERED: Lactated Ringers 1,000 ML IV ONE (10:11)
--- NOTE | 2019-06-27 10:50 | PCM.SN ---
- Free Text/Narrative Note: 0910 - late entry Called by nursing staff that patient feels short of breath. In to see patient. She reports feeling pain in her back at epidural site. Also reports feeling nauseated. Looks slightly anxious/sweaty. CV: Regular rhythm- slightly tachycardic, LUNGS: CTAB, AB: Soft, Neuro: +3 patellar, no clonus. Ordered stat CMP, CBC, and Magnesium level. Further management pending review of labs. Can consider repeat magnesium course Dinorah Avilez
--- NOTE | 2019-06-27 10:51 | PCM.SN ---
- Free Text/Narrative Note: Stopped in socially to greet patient as she had care with me and had been delivered by Dr. Avilez who is following medically. Patient cheerful and feeling better. Denies headache. No complaints. Hopefully that she can go home tomorrow
--- NOTE | 2019-06-27 10:53 | PCM.DCSUM1 ---
Discharge Summary - Discharge Data Discharge Date: 06/27/19 Discharge Disposition: 20 Preliminary Cause of *Q: Other_Special Instruction (Eclamptic seizure and likely resulting cardiac arrest) Condition: - Referral to Home Health Primary Care Physician: Zoey Rodriguez MD - Discharge Diagnosis/Problem(s) (1) 37 weeks gestation of SNOMED Code(s): 75629472 ICD Code: Z3A.37 - 37 WEEKS GESTATION OF Status: Acute Current Visit: Yes (2) Severe pre-eclampsia SNOMED Code(s): 60905394 ICD Code: O14.10 - SEVERE PRE-ECLAMPSIA, UNSPECIFIED TRIMESTER Status: Acute Current Visit: Yes Qualifiers: Trimester: third trimester Qualified Code(s): O14.13 - Severe pre-eclampsia , third trimester (3) Vaginal delivery SNOMED Code(s): 996381030 ICD Code: O80 - ENCOUNTER FOR FULL-TERM UNCOMPLICATED DELIVERY Status: Acute Current Visit: Yes (4) eclampsia SNOMED Code(s): 599424346 ICD Code: O15.2 - ECLAMPSIA COMPLICATING THE PUERPERIUM Status: Acute Current Visit: Yes (5) SNOMED Code(s): 699098227 ICD Code: R99 - ILL-DEFINED AND UNKNOWN CAUSE OF MORTALITY Status: Acute Current Visit: Yes - Patient Summary/Data Operative Procedure(s) Performed: None Consults: None Labs Pending at D/C: None Hospital Course: 18 y/o at 37 3/7 wks was found to have severe range BP's during routine Ob appointment. Was sent to L&D for IOL. Magnesium started with induction. During induction had HTN treated with several doses of IV labetalol. Induction done with 5 doses of cytotec. Had SROM after 5th and then started on pitocin. She then made very good change to complete dilation and underwent an uncomplicated . See delivery note. she was maintained on magnesium for 24 hours after delivery and did not require additional anti- hypertensives during this time fame. At about 34 hours after delivery (10 hours after magnesium discontinued) she started to complain of some back pain and SOB. Stat labs ordered and obtained. Prior to labs results (about 20 minutes after initial complaint) patient with onset of seizure. Magnesium bolus ordered, rapid response called. During rapid response patient noted to have cardiac activity on monitor, but without pulses. Code initiated at that time. Please see full documentation from code team in regards to timing/doses of medications. Not able to active return of circulation. After approximately 40 minutes code discontinued. Time of declared. - Discharge Plan *PRESCRIPTION DRUG MONITORING PROGRAM REVIEWED*: Not Applicable *COPY OF PRESCRIPTION DRUG MONITORING REPORT IN PATIENT CB: Not Applicable Home Medications: Home Meds Cranberry 400 mg PO DAILY 06/24/19 [History] Fish Oil/[place]-3 Fatty Acids [Fish Oil 1,000 MG] 1 each PO DAILY 06/24/19 [ History] ALG312/Iron Fumarate/FA/DSS [ 19 Tablet] 1 each PO DAILY 06/24/19 [ History] - Discharge Summary/Plan Comment DC Time >30 min.: No - Patient Data Vitals - Most Recent: Last Vital Signs Temp 36.6 C 06/27/19 08:05 Pulse 64 06/27/19 08:05 Resp 17 06/27/19 08:05 BP 143/83 H 06/27/19 08:05 Pulse Ox 98 06/27/19 08:05 Weight - Most Recent: 76.975 kg
--- NOTE | 2019-06-27 10:53 | PCM.SN ---
- Free Text/Narrative Note: 0932 Received call from L&D that patient seizing. They have already called [facility]. Asked them to start 6 gram mag bolus and presented immediately to room. --- see note from code for remainder of patient care Dinorah Avilez MD
--- NOTE | 2019-06-27 13:09 | PCM.SN ---
- Free Text/Narrative Note: Called to OB room #1 at 0935. Provide bag mask ventilation insert oral air way. Saturation maintained. Code blue called. Intubated with 7.5 OETT direct visualization of cords. Tube secured at 21cm at lip. Positive end tidal CO2. Maintain respirations through code. Out of room at 1026.
== END 2019-06-27 10:12 | disposition expired | DRG 806 ==
LOC: JD.OBCHECK 15:32 → JD.OB 15:43 → OBSVTOIN 06-25 23:04 → JD.MS 06-25 23:05 → JD.OB 06-26 14:19
PROVIDERS: ADMIT Obstetrics & Gynecology; ATTEND Obstetrics & Gynecology
PROC: 10E0XZZ Delivery of Products of Conception, External Approach (ICD-10-PCS; principal; 2019-06-25)
PROC: 0KQM0ZZ Repair Perineum Muscle, Open Approach (ICD-10-PCS; 2019-06-25)
PROC: 3E0P7VZ Introduction of Hormone into Female Reproductive, Via Natural or Artificial Opening (ICD-10-PCS; 2019-06-25)
PROC: 3E033VJ Introduction of Other Hormone into Peripheral Vein, Percutaneous Approach (ICD-10-PCS; 2019-06-25)
PROC: 4A1HXCZ Monitoring of Products of Conception, Cardiac Rate, External Approach (ICD-10-PCS; 2019-06-25)
PROC: 0BH17EZ Insertion of Endotracheal Airway into Trachea, Via Natural or Artificial Opening (ICD-10-PCS; 2019-06-25)
PROC: 3E0R3BZ Introduction of Anesthetic Agent into Spinal Canal, Percutaneous Approach (ICD-10-PCS; 2019-06-25)
DX: O14.14 Severe pre-eclampsia complicating childbirth (principal); O99.355 Diseases of the nervous system complicating the puerperium; Z37.0 Single live birth; G40.89 Other seizures; O70.1 Second degree perineal laceration during delivery; I46.8 Cardiac arrest due to other underlying condition; O99.43 Diseases of the circulatory system complicating the puerperium; Z3A.37 37 weeks gestation of pregnancy; Z88.0 Allergy status to penicillin; O15.2 Eclampsia complicating the puerperium
CPT/HCPCS: 01967; 31500; 36415; 36600; 51701; 51702; 59025; 59409; 80053; 82550; 82565; 82570; 82803; 83615; 83735; 84156; 84450; 84460; 84520; 84550; 85025; 85027; 86592; A9270-GY; J0171; J0282; J2270; J2405; J2590; J3010; J3475; J3490; J7120